=== PATIENT | male | born 1940 | race Caucasian/White ===

== ENCOUNTER → 2017-08-03 | Outpatient (CLI) | payer MEDICARE ==
[~2017-08-03] MED LIST: GLIP5TAB11 PO; METF10004 PO
== END | disposition home or self-care (01) ==
LOC: RAH 12:38
PROVIDERS: ATTEND Nurse Practitioner Family
DX: G31.9 Degenerative disease of nervous system, unspecified (principal); R41.3 Other amnesia; R26.0 Ataxic gait
CPT/HCPCS: 70450

== ENCOUNTER 2021-04-15 22:16 | Inpatient (IN) | payer MEDICARE ==
[~2021-04-15] VITALS: Ht 182.9 cm; Wt 67.6 kg
[~2021-04-15 22:16] MED LIST changes: +METF-446 PO; -METF10004 PO
[2021-04-15 22:35] LABS: BASOPHILS % (AUTO) 0.5 % (0.0-5.0); EOSINOPHILS % (AUTO) 3.9 % (0.0-8.0); HEMATOCRIT 40.6 % (42-54); LYMPHOCYTES % (AUTO) 28.2 % (21.0-51.0); MEAN CORPUSCULAR HEMOGLOBIN 29.3 pg (27.0-33.0); MEAN CORPUSCULAR HGB CONC 33.5 g/dL (32.0-36.0); MEAN CORPUSCULAR VOLUME 87.5 fL (79-99); MONOCYTES % (AUTO) 8.4 % (3.0-13.0); NEUTROPHILS % (AUTO) 58.8 % (40.0-77.0); PLATELET COUNT (AUTO) 255 K/uL (130-400); RED BLOOD CELL COUNT(AUTO) 4.64 MIL/uL (4.50-6.20); RED CELL DISTRIBUTION WIDTH 12.6 % (11.0-15.5)
[2021-04-15] MEDS ORDERED: 0.9%NACL 1000ML 1,000 ML IV ONE (23:00)
[2021-04-15 23:22] LABS: INR 1.02 (0.85-1.15); PROTHROMBIN TIME 11.1 SEC (9.6-11.6)
[2021-04-15 23:25] LABS: CREATININE 1.2 mg/dL (0.5-1.5); POTASSIUM 5.3 mmol/L (3.5-5.1)
[2021-04-15 23:29] LABS: ALBUMIN 3.5 g/dL (3.5-5.0); BILIRUBIN,TOTAL 0.3 mg/dL (0.2-1.0); TOTAL PROTEIN, SERUM 6.7 g/dL (6.0-8.3)
[2021-04-15] MEDS ORDERED: MAGNESIUM 2GM PREMIX 50ML 50 ML IV ONE (23:46)
[2021-04-15] MEDS: MAGNESIUM 2GM PREMIX 50ML 50 ML IV SCH (23:53)
[2021-04-16 00:51] LABS: APPEARANCE,URINE Clear (CLEAR); BILIRUBIN,URINE Negative (NEGATIVE); COLOR,URINE Yellow (YELLOW); GLUCOSE, URINE (UA) Negative (NEGATIVE); KETONES,URINE Negative (NEGATIVE); LEUKOCYTE ESTERASE ,URINE Negative (NEGATIVE); NITRATE,URINE Negative (NEGATIVE); OCCULT BLOOD,URINE Negative (NEGATIVE); PROTEIN,URINE Negative (NEGATIVE)
[2021-04-16] MEDS ORDERED: ONDANSETRON 4MG INJ IV PRN (01:30)
[2021-04-16] MEDS ORDERED: ACETAMINOPHEN 325 MG TAB PO PRN ×2 (01:30)
[2021-04-16 02:06] LABS: HEMOGLOBIN A1C 7.1 % (4.0-6.0)
[2021-04-16] MEDS: INSULIN HUMULIN R 100 UNIT/ML 3ML SQ SCH ×4 (07:30→20:19)
[2021-04-16] MEDS: FAMOTIDINE 20MG VIAL IV SCH ×2 (09:05→20:14)
[2021-04-16] MEDS: ENOXAPARIN SODIUM 40 MG/0.4 ML SYRINGE SQ SCH (09:05)
[2021-04-16] MEDS: ASPIRIN 81 MG EC TAB PO SCH (09:05)
[2021-04-16 10:28] LABS: CREATININE 1.1 mg/dL (0.5-1.5); MAGNESIUM 1.7 mg/dL (1.80-2.40)
[2021-04-16 11:30] VITALS: BP 109/77
[2021-04-16] MEDS: MAGNESIUM 2GM PREMIX 50ML 50 ML IV SCH (12:47)
[2021-04-16 14:30] VITALS: BP 127/72
[2021-04-16] MEDS ORDERED: LORAZEPAM 2 MG/ML 1 ML VIAL IVP ONE (16:00)
[2021-04-16 20:00] VITALS: BP 133/66
[2021-04-16 23:30] VITALS: BP 109/77
[2021-04-16] MEDS ORDERED: ZIPRASIDONE MESYLATE 20 MG/VIAL IM ONE (23:30)
[2021-04-17 04:30] VITALS: BP 129/73
[2021-04-17 06:26] LABS: POTASSIUM 4.8 mmol/L (3.5-5.1)
[2021-04-17] MEDS: INSULIN HUMULIN R 100 UNIT/ML 3ML SQ SCH ×4 (07:30→20:35)
[2021-04-17 08:00] VITALS: BP 101/58
[2021-04-17] MEDS: ASPIRIN 81 MG EC TAB PO SCH (09:19)
[2021-04-17] MEDS: FAMOTIDINE 20MG VIAL IV SCH ×2 (09:19→20:31)
[2021-04-17] MEDS: ENOXAPARIN SODIUM 40 MG/0.4 ML SYRINGE SQ SCH (09:19)
[2021-04-17] MEDS ORDERED: ZIPRASIDONE MESYLATE 20 MG/VIAL IM SCH (11:30)
[2021-04-17 12:00] VITALS: BP 126/71
[2021-04-17 16:00] VITALS: BP 119/68
[2021-04-17 20:00] VITALS: BP 112/76
[2021-04-17] MEDS: LACTULOSE 20 GM/30 ML UDCUP PO SCH (20:33)
[2021-04-17] MEDS ORDERED: ZIPRASIDONE MESYLATE 20 MG/VIAL IM ONE (23:00)
[2021-04-18] VITALS: BP 114/63
[2021-04-18 04:00] VITALS: BP 125/72
[2021-04-18 05:27] LABS: BASOPHILS % (AUTO) 0.3 % (0.0-5.0); EOSINOPHILS % (AUTO) 2.4 % (0.0-8.0); HEMATOCRIT 41.1 % (42-54); LYMPHOCYTES % (AUTO) 23.7 % (21.0-51.0); MEAN CORPUSCULAR HEMOGLOBIN 28.7 pg (27.0-33.0); MEAN CORPUSCULAR HGB CONC 32.8 g/dL (32.0-36.0); MEAN CORPUSCULAR VOLUME 87.4 fL (79-99); MONOCYTES % (AUTO) 8.4 % (3.0-13.0); NEUTROPHILS % (AUTO) 64.9 % (40.0-77.0); PLATELET COUNT (AUTO) 260 K/uL (130-400); RED CELL DISTRIBUTION WIDTH 12.6 % (11.0-15.5); WHITE BLOOD COUNT (AUTO) 6.3 K/uL (4.8-10.8)
[2021-04-18 05:32] LABS: CREATININE 1.1 mg/dL (0.5-1.5); POTASSIUM 4.2 mmol/L (3.5-5.1)
[2021-04-18] MEDS: LACTULOSE 20 GM/30 ML UDCUP PO SCH ×4 (05:49→17:04)
[2021-04-18] MEDS: INSULIN HUMULIN R 100 UNIT/ML 3ML SQ SCH ×4 (05:51→20:29)
[2021-04-18 07:00] VITALS: BP 124/87
[2021-04-18] MEDS: FAMOTIDINE 20MG VIAL IV SCH ×2 (08:56→20:29)
[2021-04-18] MEDS: ENOXAPARIN SODIUM 40 MG/0.4 ML SYRINGE SQ SCH (08:56)
[2021-04-18] MEDS: ASPIRIN 81 MG EC TAB PO SCH (08:56)
[2021-04-18 11:00] VITALS: BP 134/74
[2021-04-18 15:00] VITALS: BP 121/78
[2021-04-18 20:00] VITALS: BP 126/75
[2021-04-19] VITALS: BP 127/73
[2021-04-19] MEDS: LACTULOSE 20 GM/30 ML UDCUP PO SCH ×3 (00:43→11:41)
[2021-04-19 04:00] VITALS: BP 129/73
[2021-04-19 04:40] LABS: BASOPHILS % (AUTO) 0.6 % (0.0-5.0); EOSINOPHILS % (AUTO) 3.3 % (0.0-8.0); HEMATOCRIT 41.2 % (42-54); LYMPHOCYTES % (AUTO) 25.7 % (21.0-51.0); MEAN CORPUSCULAR HEMOGLOBIN 28.8 pg (27.0-33.0); MEAN CORPUSCULAR HGB CONC 32.5 g/dL (32.0-36.0); MEAN CORPUSCULAR VOLUME 88.6 fL (79-99); MONOCYTES % (AUTO) 8.5 % (3.0-13.0); NEUTROPHILS % (AUTO) 61.6 % (40.0-77.0); PLATELET COUNT (AUTO) 253 K/uL (130-400); RED BLOOD CELL COUNT(AUTO) 4.65 MIL/uL (4.50-6.20); RED CELL DISTRIBUTION WIDTH 12.6 % (11.0-15.5); WHITE BLOOD COUNT (AUTO) 6.7 K/uL (4.8-10.8)
[2021-04-19 05:00] LABS: CREATININE 1.1 mg/dL (0.5-1.5); POTASSIUM 4.4 mmol/L (3.5-5.1)
[2021-04-19] MEDS: INSULIN HUMULIN R 100 UNIT/ML 3ML SQ SCH ×4 (06:11→20:41)
[2021-04-19 08:20] VITALS: BP 112/77
[2021-04-19] MEDS ORDERED: NON-FORMULARY MEDICATION 1 EACH (Metformin HCl 1,000 MG) PO SCH (09:00)
[2021-04-19] MEDS ORDERED: LACTULOSE 20 GM/30 ML UDCUP PO SCH (09:47)
[2021-04-19] MEDS: FAMOTIDINE 20MG VIAL IV SCH ×2 (10:41→20:40)
[2021-04-19] MEDS: DOCUSATE SODIUM 100 MG CAP PO SCH (10:41)
[2021-04-19] MEDS: ASPIRIN 81 MG EC TAB PO SCH (10:41)
[2021-04-19] MEDS: SENNOSIDES 8.6 MG TABLET PO SCH (10:41)
[2021-04-19] MEDS: ENOXAPARIN SODIUM 40 MG/0.4 ML SYRINGE SQ SCH (10:42)
[2021-04-19 10:58] VITALS: BP 117/64
[2021-04-19 15:00] VITALS: BP 122/79
[2021-04-19] MEDS: METFORMIN HCL 500 MG TABLET PO SCH (17:30)
[2021-04-19 20:00] VITALS: BP 107/64
[2021-04-19] MEDS: ATORVASTATIN 20 MG TABLET PO SCH (20:40)
[2021-04-19] MEDS: TAMSULOSIN HCL 0.4 MG CAP.ER.24H PO SCH (20:40)
[2021-04-20] VITALS: BP 118/79
[2021-04-20 04:00] VITALS: BP 116/66
[2021-04-20 04:23] LABS: BASOPHILS % (AUTO) 0.4 % (0.0-5.0); EOSINOPHILS % (AUTO) 3.2 % (0.0-8.0); LYMPHOCYTES % (AUTO) 29.3 % (21.0-51.0); MEAN CORPUSCULAR HGB CONC 33.3 g/dL (32.0-36.0); MEAN CORPUSCULAR VOLUME 87.3 fL (79-99); MONOCYTES % (AUTO) 7.9 % (3.0-13.0); NEUTROPHILS % (AUTO) 58.9 % (40.0-77.0); PLATELET COUNT (AUTO) 256 K/uL (130-400); RED BLOOD CELL COUNT(AUTO) 4.58 MIL/uL (4.50-6.20); RED CELL DISTRIBUTION WIDTH 12.5 % (11.0-15.5); WHITE BLOOD COUNT (AUTO) 7.1 K/uL (4.8-10.8)
[2021-04-20 04:33] LABS: CREATININE 1.1 mg/dL (0.5-1.5); POTASSIUM 4.5 mmol/L (3.5-5.1)
[2021-04-20] MEDS: INSULIN HUMULIN R 100 UNIT/ML 3ML SQ SCH ×4 (05:51→20:56)
[2021-04-20 08:00] VITALS: BP 113/74
[2021-04-20] MEDS: ASPIRIN 81 MG EC TAB PO SCH (09:30)
[2021-04-20] MEDS: METFORMIN HCL 500 MG TABLET PO SCH ×2 (09:30→17:09)
[2021-04-20] MEDS: SENNOSIDES 8.6 MG TABLET PO SCH (09:30)
[2021-04-20] MEDS: DOCUSATE SODIUM 100 MG CAP PO SCH (09:30)
[2021-04-20] MEDS: ENOXAPARIN SODIUM 40 MG/0.4 ML SYRINGE SQ SCH (09:31)
[2021-04-20] MEDS: FAMOTIDINE 20MG VIAL IV SCH ×2 (09:31→20:52)
[2021-04-20 12:00] VITALS: BP 113/65
[2021-04-20 16:00] VITALS: BP 137/73
[2021-04-20 20:24] VITALS: BP 112/46
[2021-04-20] MEDS: TAMSULOSIN HCL 0.4 MG CAP.ER.24H PO SCH (20:52)
[2021-04-20] MEDS: ATORVASTATIN 20 MG TABLET PO SCH (20:52)
[2021-04-21 00:24] VITALS: BP 105/57
[2021-04-21 04:24] VITALS: BP 125/70
[2021-04-21] MEDS: INSULIN HUMULIN R 100 UNIT/ML 3ML SQ SCH ×4 (06:13→20:34)
[2021-04-21 08:00] VITALS: BP 126/53
[2021-04-21] MEDS: METFORMIN HCL 500 MG TABLET PO SCH ×2 (08:52→20:30)
[2021-04-21] MEDS: DOCUSATE SODIUM 100 MG CAP PO SCH (08:52)
[2021-04-21] MEDS: SENNOSIDES 8.6 MG TABLET PO SCH (08:53)
[2021-04-21] MEDS: ASPIRIN 81 MG EC TAB PO SCH (08:53)
[2021-04-21] MEDS: FAMOTIDINE 20MG VIAL IV SCH ×2 (08:53→20:34)
[2021-04-21] MEDS: ENOXAPARIN SODIUM 40 MG/0.4 ML SYRINGE SQ SCH (08:53)
[2021-04-21 12:00] VITALS: BP 131/71
[2021-04-21 16:00] VITALS: BP 114/96
[2021-04-21 20:16] VITALS: BP 91/53
[2021-04-21] MEDS: ATORVASTATIN 20 MG TABLET PO SCH (20:27)
[2021-04-21] MEDS: TAMSULOSIN HCL 0.4 MG CAP.ER.24H PO SCH (20:27)
[2021-04-22 00:16] VITALS: BP 135/70
== END 2021-04-22 04:05 | DRG 66 ==
LOC: EDH 22:16 → EDHIP 04-16 01:14 → 4AH 04-16 13:45 → 4DH 04-16 16:05
PROVIDERS: ADMIT Hospitalist; ATTEND Hospitalist
DX: I63.532 Cerebral infarction due to unspecified occlusion or stenosis of left posterior cerebral artery (principal); E11.65 Type 2 diabetes mellitus with hyperglycemia; F03.90 Unspecified dementia, unspecified severity, without behavioral disturbance, psychotic disturbance, mood disturbance, and anxiety; R27.0 Ataxia, unspecified; E83.42 Hypomagnesemia; E86.0 Dehydration; F41.9 Anxiety disorder, unspecified; F32.A Depression, unspecified; N40.0 Benign prostatic hyperplasia without lower urinary tract symptoms; E78.00 Pure hypercholesterolemia, unspecified; K59.00 Constipation, unspecified; E87.5 Hyperkalemia; Z85.72 Personal history of non-Hodgkin lymphomas; Z88.0 Allergy status to penicillin; Z90.49 Acquired absence of other specified parts of digestive tract; Z92.3 Personal history of irradiation; Z92.21 Personal history of antineoplastic chemotherapy; Z87.891 Personal history of nicotine dependence; Z86.73 Personal history of transient ischemic attack (TIA), and cerebral infarction without residual deficits; Z82.0 Family history of epilepsy and other diseases of the nervous system; Z82.5 Family history of asthma and other chronic lower respiratory diseases; Z83.3 Family history of diabetes mellitus; Z80.7 Family history of other malignant neoplasms of lymphoid, hematopoietic and related tissues; Z80.6 Family history of leukemia; Z82.3 Family history of stroke; Z82.49 Family history of ischemic heart disease and other diseases of the circulatory system
CPT/HCPCS: 36415; 70450; 70551; 71045; 80048; 80053; 81003; 82948; 83036; 83605; 83735; 83880; 84132; 84484; 85025; 85610; 87040; 92610; 93005; 93306; 93880; 97039; G0378; J1650; J1815; J2060; J3475; J3486; J3490

== ENCOUNTER → 2023-06-25 | Outpatient (CLI) | payer MEDICARE ==
[~2023-06-25] MED LIST changes: -GLIP5TAB11 PO; +GLIP5TAB15 PO
== END | disposition home or self-care (01) ==
LOC: RAH 09:00
PROVIDERS: ATTEND Emergency Medicine
DX: R13.10 Dysphagia, unspecified (principal); K21.9 Gastro-esophageal reflux disease without esophagitis
CPT/HCPCS: 74220